=== PATIENT | female | born 1980 | race Asian ===

== ENCOUNTER 2018-09-21 14:50 | Emergency (ER) | payer OTHER ==
[~2018-09-21] VITALS: Ht 165.1 cm; Wt 61.2 kg
[2018-09-21 15:10] VITALS: BP 107/79
--- NOTE | 2018-09-21 15:20 | NUR ---
37 YO F BIB MOTHER WITH C/O RT FOOT PAIN S/P INJURED WHILE PLAYING TENNIS THIS MORNING; DENIES LOC. RIGHT FOOT PRESENTS W/ SWELLING AND BRUISING. PT W/ UNSTEADY GAIT R/T LIMPING. CAP REFILL LESS THAN 3 SECONDS. PULSES PALPABLE. AAOX4, GCS 15, CMS INTACT. RR EVEN AND UNLABORED. LUNGS BL CLEAR. ABD SOFT, NON-TENDER. ER MD NOTIFIED. PT NEEDS MET, SAFETY PRECAUTIONS IN PLACE. WILL CONTINUE TO MONITOR.
--- NOTE | 2018-09-21 15:21 | NUR ---
PT TAKEN TO XRAY IN WHEELCHAIR
[2018-09-21 16:07] VITALS: BP 107/79
--- NOTE | 2018-09-21 16:08 | NUR ---
Patient discharged with v/s stable. Written and verbal after care instructions given and explained. Patient alert, oriented and verbalized understanding of instructions. Ambulatory with steady gait on crutches. All questions addressed prior to discharge. ID band removed. Patient advised to follow up with PMD. Rx of motrin given. Patient educated on indication of medication including possible reaction and side effects. Opportunity to ask questions provided and answered.
== END 2018-09-21 16:08 | disposition home or self-care (01) ==
LOC: MED 14:50
DX: S92.351A Displaced fracture of fifth metatarsal bone, right foot, initial encounter for closed fracture (principal); W19.XXXA Unspecified fall, initial encounter; Y93.73 Activity, racquet and hand sports; Y92.89 Other specified places as the place of occurrence of the external cause; Y99.8 Other external cause status
CPT/HCPCS: 73630; 99284

== ENCOUNTER 2019-03-25 07:15 | Emergency (ER) | payer OTHER ==
[~2019-03-25] VITALS: Ht 165.1 cm; Wt 64.9 kg
[2019-03-25 07:20] VITALS: BP 112/78
--- NOTE | 2019-03-25 07:25 | NUR ---
PT AMB TO ER BED 2
--- NOTE | 2019-03-25 07:44 | NUR ---
PATIENT PRESENTS TO ED WITH LOWER BACK PAIN x 4 HR AGO THAT INCREASES WITH DEEP BREATHING.PT DENIES TRAUMA OR INJURY. REPORTS NAUSEA, DENIES VOMITING. AAOX4 WITH EVEN AND STEADY GAIT. PT DENIES ANY FEVER AT THIS TIME; PATIENT STATES PAIN OF 3/10 AT THIS TIME; VSS; PATIENT POSITIONED FOR COMFORT; HOB ELEVATED; BEDRAILS UP X1; BED DOWN. PENDING ER MD EVALUATION.
[2019-03-25] MEDS ORDERED: KETOROLAC 30 MG/ML VIAL IM ONE (08:00)
[2019-03-25 08:35] LABS: BASOPHILS % (AUTO) 0.6 % (0.0-2.0); EOSINOPHILS # (AUTO) 0.1 K/uL (0-0.4); EOSINOPHILS % (AUTO) 1.3 % (0.0-4.0); HEMATOCRIT 40.1 % (36-48); HEMOGLOBIN 13.3 g/dL (12.0-16.0); LYMPHOCYTES # (AUTO) 1.5 K/uL (2.5-16.5); LYMPHOCYTES % (AUTO) 19.4 % (20.5-51.1); MEAN CORPUSCULAR HEMOGLOBIN 29 pg (27-31); MEAN CORPUSCULAR HGB CONC 33 g/dL (33-37); MEAN CORPUSCULAR VOLUME 85.9 fL (80-94); MONOCYTES # (AUTO) 0.5 K/uL (0.8-1.0); MONOCYTES % (AUTO) 6.5 % (1.7-9.3); NEUTROPHILS # (AUTO) 5.4 K/uL (1.8-7.7); NEUTROPHILS % (AUTO) 72.2 % (42.2-75.2); PLATELET COUNT (AUTO) 293 K/uL (140-450); RED BLOOD CELL COUNT(AUTO) 4.67 MIL/uL (4.20-5.40); RED CELL DISTRIBUTION WIDTH 13.1 % (11.6-13.7); WHITE BLOOD COUNT (AUTO) 7.5 K/uL (4.8-10.8)
[2019-03-25 09:03] LABS: APPEARANCE,URINE CLEAR (CLEAR); BILIRUBIN,URINE NEGATIVE (NEGATIVE); BLOOD, URINE NEGATIVE (NEGATIVE); COLOR,URINE YELLOW (YELLOW); LEUKOCYTE ESTERASE ,URINE 1+ (NEGATIVE); NITRITE, URINE NEGATIVE (NEGATIVE); UGLUCOSE NEGATIVE (NEGATIVE)
--- NOTE | 2019-03-25 09:05 | NUR ---
Patient resting comfortably in bed. Vital Signs within normal limits. Pt verbalized pain decreased to 1/10 after pain medication administration.
[2019-03-25 09:12] LABS: RBC,URINE 0-5 /HPF (0-5)
[2019-03-25 09:39] LABS: ANION GAP 10.1 (8-16); CARBON DIOXIDE 28.8 mmol/L (21-32); POTASSIUM 3.9 mmol/L (3.5-5.1)
[2019-03-25 09:40] LABS: CREATININE 0.7 mg/dL (0.6-1.3); TOTAL BILIRUBIN 0.4 mg/dL (0.0-1.0)
[2019-03-25] MEDS ORDERED: cefTRIAXone 1,000 MG in LIDOCAINE MPF 1% - 5 mL VIAL 2.1 ML IM ONE (10:25)
[2019-03-25 11:00] VITALS: BP 94/72
--- NOTE | 2019-03-25 11:02 | NUR ---
Patient discharged with v/s stable. Written and verbal after care instructions given and explained. Patient alert, oriented and verbalized understanding of instructions. Ambulatory with steady gait. All questions addressed prior to discharge. ID band removed. Patient advised to follow up with PMD. Rx of Keflex, Naprosyn and Carmel given. Patient educated on indication of medication including possible reaction and side effects. Opportunity to ask questions provided and answered.
== END 2019-03-25 11:02 | disposition home or self-care (01) ==
LOC: MED 07:15
DX: N39.0 Urinary tract infection, site not specified (principal)
CPT/HCPCS: 36415; 80053; 81001; 81025; 83690; 85025; 87086; 96372; 99283; J0696; J1885; J2001

== ENCOUNTER 2019-09-16 14:30 | Outpatient (CLI) | payer OTHER ==
[2019-09-16 15:33] LABS: BASOPHILS # (AUTO) 0.1 K/uL (0.00-0.22); EOSINOPHILS # (AUTO) 0.2 K/uL (0-0.4); EOSINOPHILS % (AUTO) 2.7 % (0.0-4.0); HEMOGLOBIN 13.7 g/dL (12.0-16.0); LYMPHOCYTES # (AUTO) 2.4 K/uL (2.5-16.5); LYMPHOCYTES % (AUTO) 39.2 % (20.5-51.1); MEAN CORPUSCULAR HEMOGLOBIN 29 pg (27-31); MEAN CORPUSCULAR HGB CONC 33 g/dL (33-37); MEAN CORPUSCULAR VOLUME 87.7 fL (80-94); MONOCYTES # (AUTO) 0.3 K/uL (0.8-1.0); MONOCYTES % (AUTO) 5.4 % (1.7-9.3); NEUTROPHILS # (AUTO) 3.1 K/uL (1.8-7.7); NEUTROPHILS % (AUTO) 51.7 % (42.2-75.2); PLATELET COUNT (AUTO) 323 K/uL (140-450); RED BLOOD CELL COUNT(AUTO) 4.79 MIL/uL (4.20-5.40); WHITE BLOOD COUNT (AUTO) 6.1 K/uL (4.8-10.8)
[2019-09-16 17:07] LABS: ANION GAP 12.2 (8-16); CARBON DIOXIDE 28.5 mmol/L (21-32); POTASSIUM 3.7 mmol/L (3.5-5.1)
[2019-09-16 17:08] LABS: CREATININE 0.6 mg/dL (0.6-1.3); TOTAL BILIRUBIN 0.4 mg/dL (0.0-1.0)
[2019-09-16 17:09] LABS: ALBUMIN 4.4 g/dL (3.4-5.0); CHOL/HDL RATIO 3.6 (1-4.5)
[2019-09-16 17:10] LABS: THYROID STIMULATING HORMONE 1.11 uIU/mL (0.34-3.74)
[2019-09-17 09:08] LABS: HEPATITIS A ANTIBODY IGM Negative (Negative); HEPATITIS B SURFACE ANTIBODY Reactive (.); HEPATITIS B SURFACE ANTIGEN Negative (Negative); T4 (THYROXINE) 7.4 ug/dL (4.5-12.0)
[2019-09-17 22:01] LABS: HEPATITIS B CORE AB TOTAL POSITIVE (NEGATIVE)
== END 2019-09-16 20:03 | disposition home or self-care (01) ==
LOC: MLB 14:30
DX: Z01.411 Encounter for gynecological examination (general) (routine) with abnormal findings (principal); Z20.2 Contact with and (suspected) exposure to infections with a predominantly sexual mode of transmission
CPT/HCPCS: 36415; 80053; 84436; 84443; 85025; 86702; 86704; 86706; 86708; 86709; 86803; 87340